=== PATIENT | female | born 1990 | race American Indian/Alaskan Native ===

== ENCOUNTER 2018-07-13 12:13 | Emergency (ER) | payer MEDICAID, OTHER ==
--- NOTE | 2018-07-13 12:36 | Emergency Department Report ---
Chief Complaint: Nausea/Vomiting/Diarrhea Stated Complaint: HBP/VOMITING/HEADACHE Time Seen by Provider: 07/13/18 12:34 - HPI History of Present Illness: LMP APRIL NO HOME PREG SEX ACTIVE NO DISCHARGE NAUSEA VOMITING G0 PMH NONE RX NONE PSH NONE MSE COMPLETED MSE screening note: Focused history and physical exam performed. Due to findings the following was ordered: ED Disposition for MSE Condition: Stable
[2018-07-13 13:29] LABS: Color,Urine Amber (Yellow)
[2018-07-13 13:30] LABS: Bacteria,Urine 1+ /HPF (Negative); Bilirubin,Urine NEG (Negative); Blood,Urine NEG (Negative); Mucus,Urine 1+ /HPF; WBC,Urine < 1.0 /HPF (0.0-6.0)
[2018-07-13 13:31] LABS: HCG Qualitative,Urine Positive (Negative)
--- NOTE | 2018-07-13 14:18 | Emergency Department Report ---
Vomiting/Diarrhea - HPI Chief Complaint: Nausea/Vomiting/Diarrhea Stated Complaint: HBP/VOMITING/HEADACHE Time Seen by Provider: 07/13/18 12:34 Duration: 2weeks Severity: mild Nausea/Vomiting Severity: Mild Diarrhea Severity: None Pain Location: Other (none) Pain Severity: Mild Symptoms: Yes Able to Tolerate Fluids, No Watery Diarrhea, No Bloody diarrhea, No Fever, No Recent Unusual Foods, No Recent Untreated Water, No Recent use of Antibiotics, No Family w/ Similar Symptoms, No Contacts w/ Similar Symptoms, No Rash, No Hematuria, No Recent URI Symptoms ED Review of Systems ROS: Stated complaint: HBP/VOMITING/HEADACHE Other details as noted in HPI Comment: All other systems reviewed and negative ED Past Medical Hx - Past Medical History Previous Medical History?: No - Surgical History Past Surgical History?: No - Social History Smoking Status: Never Smoker Substance Use Type: None - Medications Home Medications: Home Medications Medication Instructions Recorded Confirmed Last Taken Type Nitrofurantoin [place]/M-Cryst 100 mg PO Q12HR #14 capsule 07/13/18 Unknown Rx [Macrobid CAP] Ondansetron [Zofran Odt] 4 mg PO Q8HR #30 tab.rapdis 07/13/18 Unknown Rx Pnv No.121/Iron/Folic Acid 1 each PO DAILY #30 tablet 07/13/18 Unknown Rx [ Multivitamin Tablet] Vomiting Diarrhea Exam - Exam General: Vital signs noted. No distress. Alert and acting appropriately. HEENT: Yes Moist Mucous Membranes, No Pharyngeal Erythema, No Pharyngeal Exudates, No Rhinorrhea, No Conjuctival Injection, No Frontal Tenderness, No Maxillary Tenderness Neck: No Adenopathy, No Rigidity Lungs: Yes Clear Lung Sounds, Yes Good Air Exchange, No Wheezes, No Stridor, No Cough, No Nasal Flaring, No Retractions, No Use of Accessory Muscles Heart exam: Regular: Yes, Murmur: No, Tachycardia: No Abdomen: Tenderness: No, Peritoneal Signs: No, Distention: No, Hyperactive Bowel sounds: No Skin exam: Rash: No, Edema: No, Normal turgor: Yes Neurologic: Alert and oriented, no deficits. Musculoskeletal: Unremarkable. ED Course Vital Signs 07/13/18 12:34 Temperature 98.0 F Pulse Rate 62 Respiratory 16 Rate Blood Pressure 121/68 O2 Sat by Pulse 100 Oximetry ED Medical Decision Making - Medical Decision Making 27-year-old female presents with nausea and . Urinalysis shows test positive test. Discussed findings with patient. Discussed follow-up with [facility]. Referrals given. Discussed nausea medication as well as vitamins daily Critical care attestation.: If time is entered above; I have spent that time in minutes in the direct care of this critically ill patient, excluding procedure time. ED Disposition Clinical Impression: UTI (urinary tract infection), test positive Disposition: - TO HOME OR SELFCARE Is pt being admited?: No Does the pt Need Aspirin: No Condition: Stable Instructions: Urinary Tract Infection in Women (ED), (ED), Morning Sickness (ED) Additional Instructions: Make sure to follow up with the primary care physician as discussed. Take all your medications as you've been prescribed. If you have any worsening symptoms or develop new symptoms please return to ED immediately. Prescriptions: Nitrofurantoin [place]/M-Cryst [Macrobid CAP] 100 mg PO Q12HR #14 capsule Pnv No.121/Iron/Folic Acid [ Multivitamin Tablet] 1 each PO DAILY #30 tablet Ondansetron [Zofran Odt] 4 mg PO Q8HR #30 tab.rapdis Referrals: [facility] [Provider Group] - 3-5 Days [facility] [Provider Group] - 3-5 Days Forms: Work/School Release Form(ED) Time of Disposition: 14:21
[2018-07-13 14:38] VITALS: BP 131/79
== END 2018-07-13 14:37 | disposition home or self-care (01) ==
LOC: ED 12:13
DX: O21.9 Vomiting of pregnancy, unspecified (principal); O23.41 Unspecified infection of urinary tract in pregnancy, first trimester; O26.891 Other specified pregnancy related conditions, first trimester; R51 Headache; Z3A.01 Less than 8 weeks gestation of pregnancy
CPT/HCPCS: 81001; 81025

== ENCOUNTER 2018-10-11 03:58 | Outpatient (CLI) | payer MEDICAID ==
[2018-10-11 04:10] VITALS: BP 111/61
[2018-10-11] MEDS ORDERED: DIFLUCAN PO ONE (04:33)
== END 2018-10-11 04:45 | disposition home or self-care (01) ==
LOC: TRG 03:58
PROVIDERS: ATTEND Obstetrics & Gynecology
DX: O47.02 False labor before 37 completed weeks of gestation, second trimester (principal); Z3A.21 21 weeks gestation of pregnancy

== ENCOUNTER 2018-12-26 20:02 | Outpatient (CLI) | payer MEDICAID ==
[2018-12-26] MEDS ORDERED: LACTATED RINGERS 1,000 ML ONE (20:38)
[2018-12-26] MEDS ORDERED: LACTATED RINGERS 1,000 ML IV ONE (20:55)
[2018-12-26] MEDS ORDERED: TERBUTALINE 1 MG/1 ML INJ SUB-Q SCH (21:00)
[2018-12-26] MEDS ORDERED: TERBUTALINE 1 MG/1 ML INJ ONE (21:01)
[2018-12-26] MEDS ORDERED: MINERAL OIL 30 ML ORAL LIQD ONE (22:08)
[2018-12-26 22:15] LABS: Bacteria,Urine 1+ /HPF (Negative); Bilirubin,Urine NEG (Negative); Blood,Urine NEG (Negative); Color,Urine Yellow (Yellow); Mucus,Urine FEW /HPF; Protein,Urine <15 mg/dL mg/dL (Negative); Urobilinogen,Urine < 2.0 mg/dL (<2.0)
[2018-12-26] MEDS ORDERED: LIDOCAINE-MPF (1%) 10 MG/1 ML VIAL 5 ML INFILTRATI ONE (22:25)
== END 2018-12-26 23:33 | disposition home or self-care (01) ==
LOC: TRG 20:02
PROVIDERS: ATTEND Obstetrics & Gynecology
DX: O36.8130 Decreased fetal movements, third trimester, not applicable or unspecified (principal); O26.893 Other specified pregnancy related conditions, third trimester; R25.2 Cramp and spasm; Z3A.32 32 weeks gestation of pregnancy
CPT/HCPCS: 36415; 59025; 81001; 82731; 96360; 96372; J0696; J7120; J3105

== ENCOUNTER 2019-01-29 13:06 | Inpatient (IN) | payer MEDICAID ==
[2019-01-29] MEDS ORDERED: TERBUTALINE 1 MG/1 ML INJ SUB-Q PRN (13:33)
[2019-01-29] MEDS ORDERED: PROMETHAZINE 25 MG TAB PO PRN (13:33)
[2019-01-29] MEDS ORDERED: ePHEDrine SULFATE 50 MG/1 ML INJ IV PRN (13:33)
[2019-01-29] MEDS ORDERED: fentaNYL 100 MCG/2 ML INJ IV PRN (13:33)
[2019-01-29] MEDS ORDERED: TERBUTALINE 1 MG/1 ML INJ IVP PRN (13:33)
[2019-01-29] MEDS ORDERED: MINERAL OIL 30 ML ORAL LIQD PO PRN (13:33)
[2019-01-29] MEDS ORDERED: OXYTOCIN 20 UNIT/1000ML DRIP 20 UNITS/1,000 ML BAG IV SCH (14:00)
[2019-01-29] MEDS ORDERED: LIDOCAINE (2%) 20 MG/1 ML VIAL 20 ML MDV INFILTRATI ONE (14:00)
[2019-01-29] MEDS ORDERED: OXYTOCIN DRIP 30 UNITS/500 ML BAG IV SCH (14:00)
[2019-01-29] MEDS ORDERED: DINOPROSTONE 10 MG VAG SUPP VG ONE (14:00)
[2019-01-29 14:13] LABS: Hemoglobin 10.1 gm/dl (10.1-14.3); Mean Corpuscular HGB Conc 34 % (30-34); Mean Corpuscular Volume 81 fl (79-97); Platelet Count 239 K/mm3 (140-440); Red Cell Distribution Width 15.6 % (13.2-15.2)
[2019-01-29] MEDS ORDERED: NALOXONE 0.4 MG/1 ML INJ IV PRN (14:33)
[2019-01-29] MEDS ORDERED: miSOPROStol 25 MCG TAB VG ONE (14:33)
[2019-01-29] MEDS: LACTATED RINGERS 1,000 ML IV SCH ×2 (15:15→22:14)
[2019-01-29] MEDS: BUTORPHANOL 2 MG/1 ML INJ IV PRN (22:14)
[2019-01-30] MEDS: LACTATED RINGERS 1,000 ML IV SCH ×2 (05:07→19:00)
[2019-01-30] MEDS: OXYTOCIN DRIP 30 UNITS/500 ML BAG IV SCH ×4 (08:53→15:00)
--- NOTE | 2019-01-30 09:40 | History and Physical Report ---
History of Present Illness Date of examination: 01/30/19 Date of admission: 01/29/19 Chief complaint: sent over for oligohydramnioos at term for IOl Past History - Obstetrical History : 1 Medications and Allergies Allergies Allergy/AdvReac Type Severity Reaction Status Date / Time No Known Allergies Allergy Verified 10/11/18 04:12 Home Medications Medication Instructions Recorded Confirmed Last Taken Type Famotidine [Acid Controller] 10 mg PO BID 01/30/19 01/30/19 01/28/19 09:00 History 10 MG Vitamin 1 tab PO DAILY 01/30/19 01/30/19 01/28/19 09:00 History 1 Active Meds: Active Medications Butorphanol Tartrate (Stadol) 2 mg IV Q2H PRN PRN Reason: Pain , Severe (7-10) Last Admin: 01/29/19 22:14 Dose: 2 mg Documented by: Ephedrine Sulfate (Ephedrine Sulfate) 10 mg IV Q2M PRN PRN Reason: Hypotension Fentanyl (Sublimaze) 100 mcg IV Q2H PRN PRN Reason: Labor Pain Oxytocin/Sodium Chloride (Pitocin/Ns 20 Unit/1000ml Drip) 20 units in 1,000 mls @ 125 mls/hr IV DIRECT POONAM Oxytocin/Sodium Chloride (Pitocin/Ns 30 Unit/500ml) 30 units in 500 mls @ 1 mls/hr IV TITR POONAM; Protocol Oxytocin/Sodium Chloride (Pitocin/Ns 30 Unit/500ml) 30 units in 500 mls @ 2 mls/hr IV TITR POONAM; Protocol Last Admin: 01/30/19 08:53 Dose: 2 ml/hr, 2 mls/hr Documented by: Lactated Ringer's (Lactated Ringers) 1,000 mls @ 125 mls/hr IV DIRECT POONAM Last Admin: 01/30/19 05:07 Dose: 125 mls/hr Documented by: Mineral Oil (Mineral Oil) 30 ml PO QHS PRN PRN Reason: Constipation Naloxone HCl (Naloxone) 0.1 mg IV Q2MIN PRN PRN Reason: Res Rate </= 8 or 02 SAT < 92% Promethazine HCl (Phenergan) 25 mg PO Q6H PRN PRN Reason: Nausea And Vomiting Terbutaline Sulfate (Brethine) 0.25 mg SUB-Q ONCE PRN PRN Reason: Hyperstimulation/Hypertonicity Terbutaline Sulfate (Brethine) 0.25 mg IVP ONCE PRN PRN Reason: Hyperstimulation/Hypertonicity - Vital Signs Vital signs: Vital Signs Pulse BP 71 122/78 01/29/19 13:41 01/29/19 13:41 Temp Pulse Resp BP Pulse Ox 98.0 F 85 14 127/69 98 01/30/19 07:49 01/30/19 08:43 01/30/19 07:49 01/30/19 08:43 01/30/19 07:49 Results Result Diagrams: 01/29/19 13:43 Abnormal lab results 01/29/19 Range/Units 13:43 Hct 30.0 L (30.3-42.9) % MCH 27 L (28-32) pg RDW 15.6 H (13.2-15.2) % All other labs normal. Assessment and Plan A/P IUP 37 weeks admitted for recommnedations of IOL per MFM for Oligo IVF, labs s/p cervidil start pitocin for augmentation expect vaginal delivery
[2019-01-30] MEDS: BUTORPHANOL 2 MG/1 ML INJ IV PRN (14:02)
[2019-01-30] MEDS ORDERED: LIDOCAINE 1.5% /EPINEPHRINE 1:200,000 AMP (5 ML) INFILTRATI ONE (18:21)
[2019-01-30] MEDS ORDERED: NALOXONE 2 MG/2 ML INJ IV PRN (18:45)
[2019-01-30] MEDS ORDERED: ePHEDrine SULFATE 50 MG/1 ML INJ IV PRN (18:45)
--- NOTE | 2019-01-30 18:46 | Anesthesia Day of Surgery ---
Anesthesia Day of Surgery - Day of Surgery Patient Examined: Yes Patient H&P Reviewed: Yes Patient is NPO: Yes
--- NOTE | 2019-01-30 18:46 | Anesthesia Consultation ---
Anesthesia Consult and Med Hx Date of service: 01/30/19 - Airway Anesthetic Teeth Evaluation: Good ROM Head & Neck: Adequate Mental/Hyoid Distance: Adequate Mallampati Class: Class II Intubation Access Assessment: Good - Pre-Operative Health Status ASA Pre-Surgery Classification: ASA2, Emergency Proposed Anesthetic Plan: General, Epidural - Pulmonary Hx Asthma: No COPD: No Hx Pneumonia: No - Cardiovascular System Hx Hypertension: No - Central Nervous System Hx Seizures: No Hx Psychiatric Problems: No - Endocrine Hx Renal Disease: No Hx End Stage Renal Disease: No Hx Hypothyroidism: No Hx Hyperthyroidism: No - Hematic Hx Anemia: Yes Hx Sickle Cell Disease: No - Other Systems Hx Alcohol Use: No
[2019-01-30] MEDS: fentaNYL-BUPIV 2 MCG/ML-0.125% 200 MCG/100 ML BAG EPIDURAL SCH (19:22)
[2019-01-31] MEDS: LACTATED RINGERS 1,000 ML IV SCH ×3 (01:16→13:28)
[2019-01-31] MEDS: fentaNYL-BUPIV 2 MCG/ML-0.125% 200 MCG/100 ML BAG EPIDURAL SCH ×2 (04:40→12:27)
--- NOTE | 2019-01-31 07:58 | Progress Note ---
Assessment and Plan AROM at 0745 clear fluid IUPC placed in sterile fashion Amnioinfusion if recurrent decelerations Continue Pitocin titration Anticipate Subjective - Subjective Date of service: 01/31/19 Principal diagnosis: IOL for oligohydramnios Interval history: Pt is HD #2 undergoing IOL for oligohydramnios. Late decels overnight, now resolved after discontinuing Pitocin. Patient reports: vaginal bleeding (bloody show), no loss of fluid Objective - Vital Signs Vital Signs: Vital Signs - 12hr 01/30/19 01/30/19 01/30/19 20:00 20:03 20:05 Temperature Pulse Rate 66 82 88 Respiratory Rate Blood Pressure 113/82 O2 Sat by Pulse 99 98 Oximetry 01/30/19 01/30/19 01/30/19 20:10 20:15 20:20 Temperature Pulse Rate 77 79 73 Respiratory Rate Blood Pressure O2 Sat by Pulse 99 98 98 Oximetry 01/30/19 01/30/19 01/30/19 20:25 20:30 20:33 Temperature Pulse Rate 81 72 78 Respiratory Rate Blood Pressure 107/73 O2 Sat by Pulse 99 98 Oximetry 01/30/19 01/30/19 01/30/19 20:35 20:40 20:45 Temperature Pulse Rate 76 82 82 Respiratory Rate Blood Pressure O2 Sat by Pulse 98 97 97 Oximetry 01/30/19 01/30/19 01/30/19 20:50 20:55 21:00 Temperature Pulse Rate 86 71 81 Respiratory Rate Blood Pressure O2 Sat by Pulse 96 96 96 Oximetry 01/30/19 01/30/19 01/30/19 21:03 21:05 21:10 Temperature Pulse Rate 85 100 H 77 Respiratory Rate Blood Pressure 112/68 O2 Sat by Pulse 96 96 Oximetry 01/30/19 01/30/19 01/30/19 21:15 21:20 21:25 Temperature Pulse Rate 95 H 71 74 Respiratory Rate Blood Pressure O2 Sat by Pulse 96 97 97 Oximetry 01/30/19 01/30/19 01/30/19 21:30 21:33 21:35 Temperature Pulse Rate 84 77 71 Respiratory Rate Blood Pressure 113/68 O2 Sat by Pulse 95 95 Oximetry 01/30/19 01/30/19 01/30/19 21:40 21:45 21:47 Temperature Pulse Rate 77 99 H 69 Respiratory Rate Blood Pressure O2 Sat by Pulse 95 95 94 Oximetry 01/30/19 01/30/19 01/30/19 21:50 21:55 21:57 Temperature Pulse Rate 87 90 81 Respiratory Rate Blood Pressure O2 Sat by Pulse 95 95 94 Oximetry 01/30/19 01/30/19 01/30/19 22:00 22:03 22:05 Temperature Pulse Rate 83 94 H 84 Respiratory Rate Blood Pressure 112/63 O2 Sat by Pulse 95 96 Oximetry 01/30/19 01/30/19 01/30/19 22:09 22:10 22:15 Temperature Pulse Rate 83 87 89 Respiratory Rate Blood Pressure O2 Sat by Pulse 94 95 97 Oximetry 01/30/19 01/30/19 01/30/19 22:20 22:25 22:30 Temperature Pulse Rate 81 78 84 Respiratory Rate Blood Pressure O2 Sat by Pulse 96 97 96 Oximetry 01/30/19 01/30/19 01/30/19 22:34 22:35 22:40 Temperature Pulse Rate 75 93 H 86 Respiratory Rate Blood Pressure 118/71 O2 Sat by Pulse 96 96 Oximetry 01/30/19 01/30/19 01/30/19 22:45 22:50 22:55 Temperature Pulse Rate 81 81 87 Respiratory Rate Blood Pressure O2 Sat by Pulse 96 97 97 Oximetry 01/30/19 01/30/19 01/30/19 23:00 23:04 23:05 Temperature Pulse Rate 94 H 75 81 Respiratory Rate Blood Pressure 122/74 O2 Sat by Pulse 96 96 Oximetry 01/30/19 01/30/19 01/30/19 23:10 23:15 23:20 Temperature Pulse Rate 98 H 95 H 87 Respiratory Rate Blood Pressure O2 Sat by Pulse 96 97 97 Oximetry 01/30/19 01/30/19 01/30/19 23:25 23:30 23:32 Temperature Pulse Rate 89 85 88 Respiratory Rate Blood Pressure 115/71 O2 Sat by Pulse 97 96 Oximetry 01/30/19 01/30/19 01/30/19 23:35 23:40 23:45 Temperature Pulse Rate 86 84 89 Respiratory Rate Blood Pressure O2 Sat by Pulse 97 97 96 Oximetry 01/30/19 01/30/19 01/31/19 23:50 23:55 00:00 Temperature 98.2 F Pulse Rate 71 85 78 Respiratory 18 Rate Blood Pressure O2 Sat by Pulse 96 96 96 Oximetry 01/31/19 01/31/1901/31/19 00:04 00:05 00:10 Temperature Pulse Rate 79 90 81 Respiratory Rate Blood Pressure 115/78 O2 Sat by Pulse 97 97 Oximetry 01/31/19 01/31/19 01/31/19 00:15 00:20 00:25 Temperature Pulse Rate 78 80 81 Respiratory Rate Blood Pressure O2 Sat by Pulse 96 95 95 Oximetry 01/31/19 01/31/19 01/31/19 00:30 00:32 00:35 Temperature Pulse Rate 82 79 82 Respiratory Rate Blood Pressure 99/56 O2 Sat by Pulse 95 95 Oximetry 01/31/19 01/31/19 01/31/19 00:40 00:45 00:50 Temperature Pulse Rate 74 85 96 H Respiratory Rate Blood Pressure O2 Sat by Pulse 95 95 95 Oximetry 01/31/19 01/31/19 01/31/19 00:55 01:00 01:02 Temperature Pulse Rate 75 78 71 Respiratory Rate Blood Pressure 100/59 O2 Sat by Pulse 95 95 Oximetry 01/31/19 01/31/19 01/31/19 01:05 01:10 01:15 Temperature Pulse Rate 77 75 83 Respiratory Rate Blood Pressure O2 Sat by Pulse 95 95 95 Oximetry 01/31/19 01/31/19 01/31/19 01:20 01:25 01:30 Temperature Pulse Rate 86 97 H 88 Respiratory Rate Blood Pressure O2 Sat by Pulse 95 95 96 Oximetry 01/31/19 01/31/19 01/31/19 01:32 01:35 01:40 Temperature Pulse Rate 86 85 81 Respiratory Rate Blood Pressure 93/50 O2 Sat by Pulse 96 96 Oximetry 01/31/19 01/31/19 01/31/19 01:45 01:50 01:55 Temperature Pulse Rate 79 75 81 Respiratory Rate Blood Pressure O2 Sat by Pulse 95 95 95 Oximetry 01/31/19 01/31/19 01/31/19 02:00 02:03 02:05 Temperature Pulse Rate 79 95 H 75 Respiratory Rate Blood Pressure 97/54 O2 Sat by Pulse 95 96 Oximetry 01/31/19 01/31/19 01/31/19 02:10 02:15 02:20 Temperature Pulse Rate 75 73 75 Respiratory Rate Blood Pressure O2 Sat by Pulse 96 96 97 Oximetry 01/31/19 01/31/19 01/31/19 02:25 02:30 02:33 Temperature Pulse Rate 76 98 H 90 Respiratory Rate Blood Pressure 111/61 O2 Sat by Pulse 96 97 Oximetry 01/31/19 01/31/19 01/31/19 02:35 02:40 02:45 Temperature Pulse Rate 95 H 88 83 Respiratory Rate Blood Pressure O2 Sat by Pulse 97 97 96 Oximetry 01/31/19 01/31/19 01/31/19 02:50 02:55 03:00 Temperature Pulse Rate 82 70 84 Respiratory Rate Blood Pressure O2 Sat by Pulse 96 96 96 Oximetry 01/31/19 01/31/19 01/31/19 03:03 03:05 03:10 Temperature Pulse Rate 77 82 72 Respiratory Rate Blood Pressure 106/58 O2 Sat by Pulse 97 96 Oximetry 01/31/19 01/31/19 01/31/19 03:15 03:20 03:25 Temperature Pulse Rate 74 75 76 Respiratory Rate Blood Pressure O2 Sat by Pulse 96 96 96 Oximetry 01/31/19 01/31/19 01/31/19 03:30 03:33 03:35 Temperature Pulse Rate 74 72 71 Respiratory Rate Blood Pressure 102/59 O2 Sat by Pulse 96 96 Oximetry 01/31/19 01/31/19 01/31/19 03:40 03:45 03:50 Temperature Pulse Rate 77 74 68 Respiratory Rate Blood Pressure O2 Sat by Pulse 96 96 97 Oximetry 01/31/19 01/31/19 01/31/19 03:55 04:00 04:02 Temperature 98.3 F Pulse Rate 74 68 73 Respiratory 18 Rate Blood Pressure 97/50 O2 Sat by Pulse 96 96 Oximetry 01/31/19 01/31/19 01/31/19 04:05 04:10 04:15 Temperature Pulse Rate 71 70 80 Respiratory Rate Blood Pressure O2 Sat by Pulse 96 96 96 Oximetry 01/31/19 01/31/19 01/31/19 04:20 04:25 04:30 Temperature Pulse Rate 88 72 79 Respiratory Rate Blood Pressure O2 Sat by Pulse 96 96 96 Oximetry 01/31/19 01/31/19 01/31/19 04:33 04:35 04:40 Temperature Pulse Rate 74 77 94 H Respiratory Rate Blood Pressure 101/52 O2 Sat by Pulse 96 96 Oximetry 01/31/19 01/31/19 01/31/19 04:45 04:50 04:55 Temperature Pulse Rate 76 83 82 Respiratory Rate Blood Pressure O2 Sat by Pulse 96 97 97 Oximetry 01/31/19 01/31/19 01/31/19 05:00 05:04 05:05 Temperature Pulse Rate 85 83 82 Respiratory Rate Blood Pressure 112/55 O2 Sat by Pulse 97 97 Oximetry 01/31/19 01/31/19 01/31/19 05:10 05:15 05:20 Temperature Pulse Rate 89 82 83 Respiratory Rate Blood Pressure O2 Sat by Pulse 97 97 97 Oximetry 01/31/19 01/31/19 01/31/19 05:25 05:30 05:32 Temperature Pulse Rate 70 79 80 Respiratory Rate Blood Pressure 106/59 O2 Sat by Pulse 97 97 Oximetry 01/31/19 01/31/19 01/31/19 05:35 05:40 05:45 Temperature Pulse Rate 78 71 77 Respiratory Rate Blood Pressure O2 Sat by Pulse 96 97 96 Oximetry 01/31/19 01/31/19 01/31/19 05:50 05:55 06:00 Temperature Pulse Rate 77 101 H 81 Respiratory Rate Blood Pressure O2 Sat by Pulse 96 100 100 Oximetry 01/31/19 01/31/19 01/31/19 06:02 06:05 06:10 Temperature Pulse Rate 80 80 74 Respiratory Rate Blood Pressure 105/60 O2 Sat by Pulse 99 100 Oximetry 01/31/19 01/31/19 01/31/19 06:15 06:20 06:25 Temperature Pulse Rate 77 71 74 Respiratory Rate Blood Pressure O2 Sat by Pulse 100 100 99 Oximetry 01/31/19 01/31/19 01/31/19 06:30 06:32 06:35 Temperature Pulse Rate 77 70 72 Respiratory Rate Blood Pressure 102/57 O2 Sat by Pulse 99 99 Oximetry 01/31/19 01/31/19 01/31/19 06:40 06:45 06:50 Temperature Pulse Rate 73 72 82 Respiratory Rate Blood Pressure O2 Sat by Pulse 100 100 100 Oximetry 01/31/19 01/31/19 01/31/19 06:55 07:00 07:04 Temperature Pulse Rate 80 76 75 Respiratory Rate Blood Pressure 120/75 O2 Sat by Pulse 99 100 Oximetry 01/31/19 01/31/19 01/31/19 07:05 07:10 07:15 Temperature Pulse Rate 72 77 78 Respiratory Rate Blood Pressure O2 Sat by Pulse 99 100 100 Oximetry 01/31/19 01/31/19 01/31/19 07:17 07:20 07:25 Temperature 99.2 F Pulse Rate 84 78 88 Respiratory 18 Rate Blood Pressure O2 Sat by Pulse 100 97 97 Oximetry 01/31/19 01/31/19 01/31/19 07:30 07:33 07:35 Temperature Pulse Rate 85 76 83 Respiratory Rate Blood Pressure 110/58 O2 Sat by Pulse 97 96 Oximetry 01/31/19 01/31/19 01/31/19 07:40 07:45 07:50 Temperature Pulse Rate 88 96 H 84 Respiratory Rate Blood Pressure O2 Sat by Pulse 97 97 96 Oximetry - Exam Lungs: Normal air movement Abdomen: Present: soft FHR: category 1 Uterine Contraction Monitor Mode: External Cervical Dilatation: 5 Cervical Effacement Percentage: 70 station: -3 Uterine Contraction Frequency (min): 5 Uterine Contraction Duration: 60 Uterine Contraction Pattern: Irregular - Labs Labs: Abnormal Labs 01/29/19 13:43 Hct 30.0 L MCH 27 L RDW 15.6 H
[2019-01-31] MEDS ORDERED: SODIUM CHLORIDE 0.9% 1000 ML 1,000 ML ONE (09:41)
[2019-01-31] MEDS ORDERED: AMPICILLIN/NS 2 GM/100 ML 2 GM/100 ML BAG IV SCH (15:00)
[2019-01-31] MEDS ORDERED: GENTAMICIN 270 MG in SODIUM CHLORIDE 0.9% 100 ML IV SCH (16:00)
--- NOTE | 2019-01-31 16:45 | Event Note ---
Date: 01/31/19 Pt noted to be c/c/0. Commenced pushing. She was pushing to +2 when she expressed that she no longer wanted to push. After a discussion about the risks of current tachycardia, pt prefers to labor down. Pitocin increased, epidural discontinued.
[2019-01-31] MEDS ORDERED: LIDOCAINE (2%) 20 MG/1 ML VIAL 20 ML MDV INFILTRATI ONE (17:12)
[2019-01-31] MEDS ORDERED: METHYLERGONOVINE MALEATE 0.2 MG/ML VIAL IM ONE (17:12)
[2019-01-31] MEDS ORDERED: ONDANSETRON 4 MG/2 ML INJ IV PRN (17:36)
[2019-01-31] MEDS ORDERED: MAGNESIUM HYDROXIDE (MOM) ORAL LIQD UDC PO PRN (17:36)
[2019-01-31] MEDS ORDERED: PROMETHAZINE 25 MG RECT SUPP PR PRN (17:36)
[2019-01-31] MEDS ORDERED: diphenhydrAMINE 25 MG CAP PO PRN (17:36)
[2019-01-31] MEDS ORDERED: WITCH HAZEL/ GLYCERIN PAD TP PRN (17:36)
[2019-01-31] MEDS ORDERED: ACETAMINOPHEN 325 MG TAB PO PRN (17:36)
[2019-01-31] MEDS ORDERED: PROMETHAZINE 25 MG TAB PO PRN (17:36)
--- NOTE | 2019-01-31 17:48 | Procedure Note ---
OB Delivery Note - Delivery Date of Delivery: 01/31/19 Surgeon: DOM PALACIOS ([facility]) Estimated blood loss: 300cc - Vaginal Delivery presentation: vertex Delivery position: OA Intrapartum events: febrile- temp >100.3, extend. tachycardia, mult. late decelerations Delivery induction: cervidil Delivery augmentation: rupture of membranes, pitocin Delivery monitor: external FHT Route of delivery: Delivery placenta: spontaneous Delivery cord: 3 umbilical vessels, other (Cord compressed by chin) Episiotomy: none Delivery laceration: other (left labial and periurethral) Delivery repair: vicryl Anesthesia: local, epidural Delivery comments: Pt progressed to c/c/0. Trial of pushing was discontinued due to maternal intolerance of pushing. tachycardia noted, no decels, moderate variability. Labored down to c/c/+3. Maternal effort resulted in of vigorous female . Head delivered OA, restituted LOT. Shoulders followed easily. Bulb suction and stimulation to lusty cry. Brisk bleeding noted. Cord clamped and cut. [place] placenta followed spontaneously and intact. Fundus firm to massage. Pitocin infusing. Left labial laceration noted to be the source of bleeding, pressure applied, repaired with 2-0 Vicryl under epidural and local Lidocaine anesthesia. Good hemostasis noted. Periurethral abrasion hemostatic, not repaired. EBL 300cc. Apgars 8/9. - Infant A at 1 minute: 8 at 5 minutes: 9 Gender: Female
[2019-01-31] MEDS ORDERED: LANOLIN/ZINC/DIMETHICONE (LANSINOH) 7 GM TP PRN (18:36)
[2019-02-01] MEDS: IBUPROFEN 600 MG TAB PO SCH ×5 (00:45→23:10)
[2019-02-01] MEDS ORDERED: TETANUS,DIPH,PERTUSS(ACELL) VACCINE 0.5 ML SYRINGE IM ONE (06:00)
[2019-02-01 06:13] LABS: Hematocrit 23.6 % (30.3-42.9); Hemoglobin 7.8 gm/dl (10.1-14.3)
[2019-02-01] MEDS: PRENATAL VIT27-FE FUMARATE-FOLIC ACID VIT TAB PO SCH (09:29)
[2019-02-01] MEDS: FERROUS SULFATE 325 MG TAB PO SCH ×2 (09:29→23:10)
--- NOTE | 2019-02-01 13:46 | Progress Note ---
Assessment and Plan PPD1 s/p Afebrile, vital signs stable Acute on chronic anemia Awaiting blood culture results. Continue current care Subjective - Subjective Date of service: 02/01/19 Principal diagnosis: s/p Interval history: PPD1 s/p and fever, s/p AMpicillin x2 Patient reports: appetite normal, voiding normally, pain well controlled, ambulating normally [place]: doing well, nursing well (primarily breast), bottle feeding Objective - Vital Signs Latest vital signs: Vital Signs Temp Pulse Resp BP BP Pulse Ox 02/01/19 00:48 98.0 F 84 18 105/66 99 01/31/19 20:15 98.7 F 81 18 118/71 100 01/31/19 19:24 90 116/65 01/31/19 19:10 90 115/83 01/31/19 19:01 100.6 F H 01/31/19 18:59 104 H 97 01/31/19 18:54 85 109/59 97 01/31/19 18:49 82 97 01/31/19 18:44 83 97 01/31/19 18:39 85 112/62 98 01/31/19 18:34 82 100 01/31/19 18:30 99.9 F H 84 18 111/61 111/61 100 01/31/19 18:29 87 98 01/31/19 18:05 89 99 01/31/19 18:00 85 100 01/31/19 17:55 90 100 01/31/19 17:54 85 123/70 01/31/19 17:50 90 100 01/31/19 17:45 92 H 100 01/31/19 17:40 88 100 01/31/19 17:24 91 H 130/79 01/31/19 17:09 90 124/80 01/31/19 16:19 93 H 97 01/31/19 16:02 96 H 132/91 01/31/19 15:45 81 99 01/31/19 15:41 103 H 75 L 01/31/19 15:40 92 H 99 01/31/19 15:35 85 99 01/31/19 15:33 92 H 130/89 01/31/19 15:30 86 79 L 01/31/19 15:25 97 H 99 01/31/19 15:20 92 H 98 01/31/19 15:15 87 99 01/31/19 15:10 100.3 F H 83 100 01/31/19 15:05 92 H 100 01/31/19 15:03 85 119/70 01/31/19 15:02 85 122/73 01/31/19 15:00 86 100 01/31/19 14:55 81 100 01/31/19 14:50 85 100 01/31/19 14:45 109 H 98 01/31/19 14:40 103 H 95 01/31/19 14:37 94 H 59 L 01/31/19 14:35 100 H 100 01/31/19 14:32 81 130/76 01/31/19 14:30 91 H 100 01/31/19 14:25 84 100 01/31/19 14:20 82 99 01/31/19 14:15 85 100 01/31/19 14:10 95 H 100 01/31/19 14:05 83 100 01/31/19 14:00 79 100 01/31/19 13:59 78 123/78 01/31/19 13:58 101.4 F H 83 20 123/78 100 01/31/19 13:55 104 H 100 01/31/19 13:50 97 H 100 01/31/19 13:45 91 H 100 Intake and Output 01/31/19 02/01/19 02/01/19 23:59 07:59 15:59 Intake Total 269.867 480 Output Total 650 400 Balance -380.133 80 Intake: IV 29.867 PITOCin/NS 30 UNIT/500ML 29.867 30 units In 500 ml @ 2 mls/hr IV TITR POONAM Rx#: [id number] Oral 240 480 Output: Urine 650 400 Void 650 400 Other: Total, Intake Amount 240 240 Total, Output Amount 250 400 # Voids Void 1 1 Estimated Blood Loss 300 - Exam Lungs: Present: Normal air movement Abdomen: Present: soft Uterus: Present: firm, fundal height below umbilicus Extremities: Present: normal - Labs Labs: Abnormal lab results 02/01/19 Range/Units 05:40 Hgb 7.8 L (10.1-14.3) gm/dl Hct 23.6 L D (30.3-42.9) %
[2019-02-01] MEDS ORDERED: MEASLES, MUMPS & RUBELLA 12,500 UNIT/0.5 ML VACCINE SUB-Q ONE (17:36)
[2019-02-02] MEDS: IBUPROFEN 600 MG TAB PO SCH ×3 (00:08→11:19)
--- NOTE | 2019-02-02 08:33 | Progress Note ---
Assessment and Plan - Patient Problems (1) (normal spontaneous vaginal delivery) Current Visit: Yes Status: Acute Plan to address problem: patient doing well Subjective - Subjective Date of service: 02/02/19 Principal diagnosis: s/p Interval history: Patient without complaints. Lochia is improved. Pain controlled. Patient reports: appetite normal, voiding normally, pain well controlled [place]: doing well Objective - Vital Signs Latest vital signs: Vital Signs Temp Pulse Resp BP BP Pulse Ox 02/02/19 08:03 97.6 F 67 18 97/56 02/02/19 06:47 18 02/02/19 01:27 98.2 F 77 20 119/81 99 Intake and Output 02/01/19 02/02/19 02/02/19 22:59 06:59 14:59 Intake Total 240 480 Balance 240 480 Intake: Oral 240 480 Other: Total, Intake Amount 240 480 # Voids Void 1 1 - Exam Uterus: Present: normal, firm
--- NOTE | 2019-02-02 08:35 | Discharge Summary ---
Providers - Providers Date of Admission: 01/29/19 13:07 Date of discharge: 02/02/19 Attending physician: VY ALVES MD Primary care physician: VY ALVES MD Hospitalization Reason for admission: induction of labor Delivery: Discharge diagnosis: other (Oligohydramnios) baby: female Hospital course: Patient admitted for IOL for oligo. Patient had a . uncomplicated Condition at discharge: Good Disposition: DC-01 TO HOME OR SELFCARE - Discharge Diagnoses (1) (normal spontaneous vaginal delivery) Status: Acute Plan - Discharge Medications Prescriptions: Ferrous Sulfate [Ferrous Sulfate 324 MG] 324 mg PO BID #60 tablet. Ibuprofen [Motrin] 600 mg PO Q6H PRN #60 tablet PRN Reason: Pain HYDROcodone/APAP 5-325 [[place] 5/325] 1 each PO Q6HR PRN #20 tablet PRN Reason: Pain - Provider Discharge Summary Activity: no sex for 6 weeks, no heavy lifting 4 weeks, no strenuous exercise Diet: routine Instructions: routine Additional instructions: [] Smoking cessation referral if applicable(refer to patient education folder for contact #) [] Refer to [facility] Booklet Call your doctor immediately for: * Fever > 100.5 * Heavy vaginal bleeding ( >1 pad per hour) * Severe persistent headache * Shortness of breath * Reddened, hot, painful area to leg or breast * schedule visit in 4 weeks - Follow up plan
[2019-02-02] MEDS: FERROUS SULFATE 325 MG TAB PO SCH (09:57)
[2019-02-02] MEDS: PRENATAL VIT27-FE FUMARATE-FOLIC ACID VIT TAB PO SCH (09:57)
[2019-02-02 17:29] VITALS: BP 120/89
== END 2019-02-02 17:45 | disposition home or self-care (01) | DRG 775 ==
LOC: TRG 13:06 → LD 13:07 → OB 01-31 20:16
PROVIDERS: ADMIT Obstetrics & Gynecology; ATTEND Obstetrics & Gynecology
PROC: 10E0XZZ Delivery of Products of Conception, External Approach (ICD-10-PCS; principal; 2019-01-31)
PROC: 3E0P7VZ Introduction of Hormone into Female Reproductive, Via Natural or Artificial Opening (ICD-10-PCS; 2019-01-31)
PROC: 0UQMXZZ Repair Vulva, External Approach (ICD-10-PCS; 2019-01-31)
PROC: 3E0R3BZ Introduction of Anesthetic Agent into Spinal Canal, Percutaneous Approach (ICD-10-PCS; 2019-01-31)
PROC: 00HU33Z Insertion of Infusion Device into Spinal Canal, Percutaneous Approach (ICD-10-PCS; 2019-01-31)
PROC: 10H07YZ Insertion of Other Device into Products of Conception, Via Natural or Artificial Opening (ICD-10-PCS; 2019-01-31)
PROC: 10907ZC Drainage of Amniotic Fluid, Therapeutic from Products of Conception, Via Natural or Artificial Opening (ICD-10-PCS; 2019-01-31)
PROC: 3E0234Z Introduction of Serum, Toxoid and Vaccine into Muscle, Percutaneous Approach (ICD-10-PCS; 2019-02-01)
PROC: 3E0134Z Introduction of Serum, Toxoid and Vaccine into Subcutaneous Tissue, Percutaneous Approach (ICD-10-PCS; 2019-02-01)
DX: O41.03X0 Oligohydramnios, third trimester, not applicable or unspecified (principal); O99.02 Anemia complicating childbirth; O76 Abnormality in fetal heart rate and rhythm complicating labor and delivery; O71.82 Other specified trauma to perineum and vulva; Z79.899 Other long term (current) drug therapy; Z37.0 Single live birth; Z3A.37 37 weeks gestation of pregnancy; Z23 Encounter for immunization
CPT/HCPCS: 36415; 59025; 59200; 85014; 85018; 85027; 86850; 86900; 86901; 87040; 88307; 96360; 96361; 96365; 96366; G0378; J0290; J0595; J1580; J2210; J2590; J7030; J7120